=== PATIENT | female | born 1930 | race Caucasian/White ===

== ENCOUNTER → 2021-08-17 | Outpatient (CLI) | payer MEDICARE | LOC: EXRD 11:01 | DX: M17.12 Unilateral primary osteoarthritis, left knee (principal); R79.0 Abnormal level of blood mineral; M85.88 Other specified disorders of bone density and structure, other site | CPT/HCPCS: 72110; 73564 ==

== ENCOUNTER → 2021-09-27 | Outpatient (CLI) | payer MEDICARE | LOC: EXRD 09-14 13:00 | DX: M85.88 Other specified disorders of bone density and structure, other site (principal); M81.0 Age-related osteoporosis without current pathological fracture | CPT/HCPCS: 77080 ==